=== PATIENT | male | born 1955 | race Asian ===

== ENCOUNTER 2021-11-24 00:41 | Emergency (ER) | payer OTHER ==
[~2021-11-24] VITALS: Ht 165.1 cm; Wt 63.5 kg
[2021-11-24] MEDS ORDERED: FLUORESCEIN SODIUM 1 MG OPHTHALMIC STRIP OP ONE (00:42)
[2021-11-24] MEDS ORDERED: BALANCED SALT IRRIG SOLN 15 ML IO ONE (00:42)
[2021-11-24 00:46] VITALS: BP_SYST 146
--- NOTE | 2021-11-24 00:54 | NUR ---
Patient triaged and placed in waiting room. VSS and patient appears in no acute distress at this time. Accompanied by FAMILY, awaiting available bed, and MD notified of need for MSE.
--- NOTE | 2021-11-24 00:54 | NUR ---
WALKED IN C/O LEFT EYE PAIN SINCE YEST. DENIES BARBOZA, N/V, BLURRED VISION, DIZZINESS. TAKES TADALAFIL AND PROTONIX AT HOME. NO PAIN MEDS TAKEN
--- NOTE | 2021-11-24 01:23 | NUR ---
DR. FALCON IN TRIAGE FOR MSE
--- NOTE | 2021-11-24 01:50 | NUR ---
PT AMBULATED TO BED 3 FROM TRIAGE, PT C/O LEFT EYE PAIN, DENIES BLURRY OR DOUBLE VISION. DENIES ANY DISCOMFORT AT PRESENT TIME.
--- NOTE | 2021-11-24 01:51 | NUR ---
Patient to ER bed 3 to gown for evaluation. Side rails up. Report given to Jian JUNG.
[2021-11-24] MEDS ORDERED: PRED20TA PO (02:24)
[2021-11-24] MEDS ORDERED: predniSONE 20 MG TABLET PO ONE (02:30)
[2021-11-24] MEDS ORDERED: ACET12.55 PO (04:26)
[2021-11-24 04:37] VITALS: BP_SYST 126
--- NOTE | 2021-11-24 04:39 | NUR ---
Patient given written and verbal discharge instructions and verbalizes understanding. ER MD discussed with patient the results and treatment provided. Patient in stable condition. ID arm band removed. Rx SENT ELECTRONICALLY TO PHARMACY. Patient educated on pain management and to follow up with PMD. Pain Scale 2. Opportunity for questions provided and answered. Medication side effect fact sheet provided.
== END 2021-11-24 04:37 | disposition home or self-care (01) ==
LOC: SED 00:41
DX: H57.12 Ocular pain, left eye (principal); E78.5 Hyperlipidemia, unspecified; Z79.899 Other long term (current) drug therapy
CPT/HCPCS: 99284; 70450; 76376; J7512